=== PATIENT | male | born 1945 | race Caucasian/White ===

== ENCOUNTER → 2023-04-25 | Outpatient (CLI) | payer MEDICARE ==
--- NOTE | 2023-04-26 07:58 | MR ---
EXAMINATION TYPE: MR brain wo/w con DATE OF EXAM: 04/25/2023 COMPARISON: HISTORY: Optic neuropathy. CONTRAST: Performed utilizing 8.5 mL intravenous Gadavist gadolinium contrast. TECHNIQUE: Multiplanar, multiecho imaging on a 3.0 Laura magnet is performed through the brain. Stud y is performed within 24 hours of arrival to the hospital. The craniovertebral junction is normal. The pituitary is normal. Diffusion-weighted imaging is performed. No abnormal hyperintensity is present to suggest an acute i ntracranial infarct or acute ischemic change. There are scattered punctate areas of hyperintensity on T2 and Inversion Recovery weighted sequences which are non-specific but can be related to microvascular ischemic changes. Differential diagnosis i ncludes multiple sclerosis, Lyme disease, vasculitis. Globes appear normal. Extraocular muscles are unremarkable. Optic nerves appear normal. Optic chiasm appears normal. Study is not optimized for orbital evaluation. Ventricles and sulci are appropriate for the patient age. There is opacification of the right maxillary sinus. No suspicious enhancement is evident. IMPRESSION: 1. Patchy periventricular white matter ischemic type changes. 2. No acute intracranial changes.
== END | disposition home or self-care (01) ==
LOC: RADMRIMAIN 11:21
PROVIDERS: ATTEND Ophthalmology
DX: I67.82 Cerebral ischemia (principal)
CPT/HCPCS: 70553; A9585

== ENCOUNTER → 2024-03-27 | Outpatient (CLI) | payer MEDICARE ==
--- NOTE | 2024-03-27 15:59 | CT ---
EXAMINATION TYPE: CT abdomen pelvis wo con DATE OF EXAM: 03/27/2024 COMPARISON: 02/15/2014 CLINICAL INDICATION: Male, 79 years old with history of R10.2 PELVIC AND PERINEAL PAIN; PHH, pelvic p ain TECHNIQUE: CT scan of the abdomen and pelvis is performed without oral or IV contrast. CT DLP: 414.[address] CTDI: mGy Automated exposure control for dose reduction was used. FINDINGS: Within the limitations of a non-contrast study, the following observations are made. There is a new 5 mm nodule in the right middle lobe and a new 7.3 mm nodule in the right lung base ad jacent to the diaphragm. The left lower lobe is clear. There are multiple gallstones but no gallbladder distention, wall thickening or pericholecystic fluid . There is no biliary ductal dilatation. There is no organomegaly of the liver, pancreas, spleen or adrenal glands. There are no renal calcifications or hydronephrosis. The caliber of the abdominal aorta is normal and there is no retroperitoneal adenopathy or hemorrhage . The bowel loops are normal in caliber is no evidence of obstruction. No inflammatory changes are iden tified in the mesentery and there is no free intraperitoneal air or fluid. There is no pelvic mass, free fluid, abscess or adenopathy. There is moderate to marked prostatic hypertrophy. The osseous structures and soft tissues are unremarkable. IMPRESSION: 1. 2 right lung nodules the largest of which is 7.4 mm. Neoplasm cannot be excluded. CT thorax is rec ommended for further evaluation. 2. Moderate to marked prostatic hypertrophy. 3. No acute changes within the abdomen or pelvis. [facility], , 03/27/2024 3:56 PM
== END | disposition home or self-care (01) ==
LOC: RADCTMAIN 13:41
PROVIDERS: ATTEND Family Medicine
DX: K80.20 Calculus of gallbladder without cholecystitis without obstruction (principal); N40.0 Benign prostatic hyperplasia without lower urinary tract symptoms; R91.8 Other nonspecific abnormal finding of lung field
CPT/HCPCS: 74176

== ENCOUNTER → 2024-04-23 | Outpatient (CLI) | payer MEDICARE ==
--- NOTE | 2024-04-23 14:05 | CT ---
EXAMINATION TYPE: CT chest wo con CT DLP: 350 mGycm, Automated exposure control for dose reduction was used. DATE OF EXAM: 04/23/2024 1:56 PM COMPARISON: CT abdomen and pelvis 03/27/2024 CLINICAL INDICATION:Male, 79 years old with history of R91.1 SOLITARY PULMONARY NODULE; PHH, nodules TECHNIQUE: Multiple axial images were obtained through the chest without IV contrast. Lack of IV or o ral contrast limits evaluation of solid and hollow organ viscera. . Coronal and sagittal reformats re viewed. FINDINGS: LUNGS/ PLEURA: No pleural effusion, pneumothorax, focal consolidation. Scattered tree-in-bud nodular opacities within the right upper lobe. Medial right upper lobe 5.6 mm solid pulmonary nodule (series 4, image 18). Stable right midlung 4 mm pulmonary nodule (series 4, image 40). Stable right lower lob e lung base 7.5 mm pulmonary nodule (series 4, image 52). Couple of adjacent micronodules within the lingula measuring up to 2.4 cm (series 4, image 40). AIRWAY: Patent and unremarkable.. HEART: Size within normal limits.No pericardial effusion. Small LAD coronary artery calcifications. MEDIASTINUM: No gross evidence of adenopathy. VASCULATURE: No aortic aneurysm. MUSCULOSKELETAL: No acute osseous abnormalities. No aggressive osseous lesion. SOFT TISSUES/LYMPH NODES: Unremarkable. LOWER NECK: No significant findings. UPPER ABDOMEN: Multiple gallstones identified. IMPRESSION: 1. Few scattered pulmonary nodules with largest in the right lower lobe measuring up to 7.5 cm. Follo w-up CT chest in 3-6 months is recommended. 2. Few scattered regions of tree-in-bud nodular opacities within the right upper lobe suggesting an i nfectious or inflammatory bronchiolitis. 3. Cholelithiasis. [facility], , 04/23/2024 2:03 PM
== END | disposition home or self-care (01) ==
LOC: RADCTMAIN 12:54
PROVIDERS: ATTEND Family Medicine
DX: R91.8 Other nonspecific abnormal finding of lung field (principal); K80.20 Calculus of gallbladder without cholecystitis without obstruction
CPT/HCPCS: 71250